=== PATIENT | female | born 1955 | race Hispanic/Latino ===

== ENCOUNTER 2020-02-26 07:57 | Day surgery (SDC) | payer MEDICARE ==
[2020-02-19 10:23] LABS: Absolute Lymphocytes (CBC) 2.4 K/uL (0.7-4.9); Basophils % 0.7 % (0-1.3); Hematocrit 42.1 % (36.0-45.0); Lymphocytes % 32.6 % (15.3-44.8); MPV 8.6 fL (7.6-11.3); RBC Red Blood Cell Count 5.04 M/uL (3.86-4.86)
[2020-02-19 10:27] LABS: Protime INR 0.93
[2020-02-19 10:32] LABS: Potassium 3.9 mmol/L (3.5-5.1)
--- NOTE | 2020-02-19 10:53 | RAD REPORT ---
EXAM DESCRIPTION: Kali Rodriguez And Alvarez (2 Views)02/19/2020 10:00 am CLINICAL HISTORY: Preop for knee surgery COMPARISON: None FINDINGS: The lungs appear clear of acute infiltrate. The heart is probably upper limits normal siz e IMPRESSION: No acute abnormalities displayed
--- NOTE | 2020-02-20 12:27 | EKG ---
Test Date: 2020-02-19 Test Time: 09:43:32 Software Development Analyst: LETITIA MEASUREMENT RESULTS: Intervals: Rate: 61 WV: 154 QRSD: 96 QT: 442 QTc: 444 [place]: P: 52 WV: 154 QRS: -66 T: 219 INTERPRETIVE STATEMENTS: Normal sinus rhythm Left anterior fascicular block ST & T wave abnormality, consider inferior ischemia ST & T wave abnormality, consider anterolateral ischemia Abnormal ECG No previous ECG available for comparison Electronically Signed On 02-20-20 12:24:41 CDT by Irving Noel
[2020-02-26] MEDS ORDERED: CEFAZOLIN/SWI 1gm 1 GM/10 ML SYR ONE (08:25)
[2020-02-26] MEDS ORDERED: NA CHLORIDE 0.9% 1,000 ML ONE (08:25)
[2020-02-26] MEDS ORDERED: propofoL 200 MG/20 ML VIAL IV ONE (08:49)
[2020-02-26] MEDS ORDERED: FENTANYL CITR 100 MCG/2 ML ONE (08:49)
[2020-02-26] MEDS ORDERED: ONDANSETRON 4 MG/2 ML VIAL ONE (08:49)
[2020-02-26] MEDS ORDERED: dexAMETHasone 10 MG/ML VIAL ONE (08:49)
[2020-02-26] MEDS ORDERED: LIDOCAINE 2% MPF 5 ML VIAL ONE (08:49)
[2020-02-26] MEDS ORDERED: MIDAZOLAM HCL 2 MG/2 ML INJ ONE (08:49)
[2020-02-26] MEDS ORDERED: KETOROLAC 30 MG/ML INJ ONE (08:50)
[2020-02-26] MEDS ORDERED: Mastisol Adhesive Liq ONE (08:54)
[2020-02-26] MEDS ORDERED: BUPIVACAINE 0.25% PF 10 ML VIAL ONE (09:35)
[2020-02-26] MEDS ORDERED: dexAMETHasone 4 MG/ML VIAL ONE (10:41)
[2020-02-26] MEDS ORDERED: EPHEDRINE SULF 50 MG/ML VIAL ONE (11:28)
--- NOTE | 2020-02-26 11:48 | P.BOP ---
Preoperative diagnosis: left knee medial and lateral meniscus tears Postoperative diagnosis: same Primary procedure: left knee arthroscopic partial lateral meniscectomy Secondary procedure: left knee arthroscopic partial medial meniscectomy Nanoelectronics Engineer: NONE,NONE Estimated blood loss: <5 cc Specimen: none Findings: see dictation Anesthesia: General Complications: None Implants: none Fluids & blood products: per anesthesia record; TT: 33 mins @ 300 mmHg Transferred to: Recovery Room Condition: Good
[2020-02-26 11:55] VITALS: O2SAT 97
[2020-02-26] MEDS ORDERED: NA CHLORIDE 0.9% 500 ML ONE (12:11)
[2020-02-26] MEDS ORDERED: HYDROCODONE/APAP 5/325 MG TAB ONE (12:40)
[2020-02-26 13:36] VITALS: TEMP 98.1
[2020-02-26 13:37] VITALS: BP 128/54
--- NOTE | 2020-02-26 22:25 | OP ---
Date of Procedure: 02/26/2020 Surgeon: Kel Harper MD Preoperative Diagnoses: 1.Left knee lateral meniscus tear. 2.Left knee medial meniscus tear. Postoperative Diagnoses: 1.Left knee lateral meniscus tear. 2.Left knee medial meniscus tear. Procedure Performed: 1.Left knee arthroscopic partial medial meniscectomy. 2.Arthroscopic left knee partial lateral meniscectomy. Anesthesia: General LMA. Fluids: Per Anesthesia record. Estimated Blood Loss: Less than 5 cc. Tourniquet Time: 32 minutes at 300 mmHg. Indication For Procedure: Ms. Mortensen is a 64-year-old female, who presented to my clinic with sig ns, symptoms, and MRI findings consistent with lateral meniscus tear, medial meniscus tear of her lef t knee. The patient reported continued pain of her left knee and difficulty with activities of daily living. I discussed with the patient at length risks and benefits associated with operative and non operative treatment. She expressed understanding and elected to proceed with operative treatment. Description Of Procedure: After informed consent was obtained, the patient was identified in the pre operative holding area. The left lower extremity was marked. The patient was then brought in and ta mainor back to the operating room, transferred to the operating table in a supine fashion and placed und er general LMA anesthesia. The left lower extremity was then prepped and draped in usual sterile fas hion. A time-out was initiated. The correct patient and procedure were confirmed and identified. T he patient did receive preoperative prophylactic antibiotics. The left lower extremity was then exsa nguinated using an Esmarch. The tourniquet was inflated at 300 mmHg. A standard anteromedial and an terolateral portals were created. The arthroscope was brought in via the anterolateral portal and di agnostic arthroscopy was performed. The arthroscope was then first brought into the medial and into the patellofemoral compartment where the patient was noted to have no significant chondral injury of the patellofemoral compartment. The arthroscope was then brought into both medial and lateral gutter s. There were no loose bodies within the gutters. The arthroscope was then brought to the medial co mpartment. The patient was noted to have a small tear at the medial meniscus body, which was complex in nature with some radial and horizontal components. A partial medial meniscectomy was performed u sing arthroscopic meniscal biter and arthroscopic shaver. The arthroscope was then brought into the intercondylar notch. The patient was noted to have an intact ACL and PCL. The patient did have some grade 2 chondromalacia changes at her medial compartment. The arthroscope was then brought into the lateral compartment where the patient was noted to have some grade 3 chondromalacia changes of her l ateral femoral condyle. The patient was also noted to have some extensive complex anterior horn late ral meniscus tear with significant fraying. The arthroscopic shaver was then used to debride the men iscal tear, which did appear to be completely to the rim. After partial meniscectomy was performed, there was stable meniscal borders. The arthroscopic instruments were then removed without complicati on and the wounds were then irrigated thoroughly with normal saline and portals were approximated usi ng a 3-0 Monocryl. Sterile dressings were applied. Tourniquet was let down. The patient was awaken ed and transferred to PACU in stable condition. Postoperative Plan: Ms. Mortensen will be weightbearing as tolerated. She will be followed next aly merrill for wound check. She will be sent to Physical Therapy to work on range of motion and strengthening per postmeniscectomy protocol. CV/MODL Voice ID: [id number] Report ID: [id number]
--- OUTSIDE RECORDS SUMMARY | 2020-03-02 18:38 | XMS REPORT | Summary of Care ---
:1955 Author Organization [facility] - Health Address [address] [place] [address] Care Team Providers Name Role Phone Paiz Primary Care Provider Encounter Details Date Type Department Care Team Description 02/17/2020 Orders Only [facility] Doctor Unassigned, No 301 [facility] Name [place] [id number] [address] [place], [place] [id number] Allergies Not on Filedocumented as of this encounter (statuses as of 02/17/2020) Medications Not on filedocumented as of this encounter (statuses as of 02/17/2020) Active Problems Not on filedocumented as of this encounter (statuses as of 02/17/2020) Social History Tobacco Use Types Packs/Day Years Used Date Never Assessed Sex Assigned at Date Recorded Not on file COVID-19 Exposure Response Date Recorded In the last month, have you been in contact with No / Unsure 02/05/2020 1:18 PM CDT someone who was confirmed or suspected to have Coronavirus / COVID-19? documented as of this encounter Last Filed Vital Signs Not on filedocumented in this encounter Plan of Treatment Date Type Specialty Care Team Description 02/17/2020 Appointment Radiology Radiology [address] [place] [address] Health Maintenance Due Date Last Done Comments HEPATITIS C (HCV) SCREEN 1955 Depression Screening 1966 DTaP,Tdap,and Td Vaccines ( - 1973 Tdap) COLON CANCER SCREENING ANNUAL 2004 FIT/FOBT COLON CANCER SCREENING FIT DNA 2004 EVERY 3 YEARS COLON CANCER SCREENING 2004 SIGMOIDOSCOPY EVERY 5 YEARS COLONOSCOPY 2004 Colorectal Cancer Screening 2004 Zoster Recombinant Vaccine 2004 (SHINGRIX) (1 of 2) Medicare Wellness Visit 12/02/2019 Osteoporosis Screening 12/02/2019 PNEUMOCOCCAL VACCINES 65+ (1 of 1 12/02/2019 - PPSV23) INFLUENZA VACCINE (#1) 2020 05/27/2015 Breast Cancer Screening 01/29/2020 01/28/2019, 01/02/2018, (MAMMOGRAM) 01/01/2017, Additional history exists documented as of this encounter Procedures Procedure Name Priority Date/Time Associated Diagnosis Comme nts ASSIGNMENT OF BENEFITS Routine 02/17/2020 8:55 AM CDT documented in this encounter Results Not on filedocumented in this encounter Insurance Payer Benefit Plan / Subscriber ID Effective Phone Address T ype Group Dates [place]/FELISA [id number] 2020-Pres [place] Adv HEALTHCARE - MEDICARE ent O MANAGED MEDICARE ADVANTAGE documented as of this encounter
--- OUTSIDE RECORDS SUMMARY | 2020-03-02 18:38 | XMS REPORT | Summary of Care ---
:1955 Author Organization [facility] Address [address] [place] [address] Care Team Providers Name Role Phone Paiz Primary Care Provider Encounter Details Date Type Department Care Team Description 02/22/2020 Orders Only [facility] Doctor Unassigned, No 301 [facility] Name [place] [id number] [address] [place] [id number] Allergies No Known Allergiesdocumented as of this encounter (statuses as of 02/24/2020) Medications No known medicationsdocumented as of this encounter (statuses as of 02/24/2020) Active Problems Not on filedocumented as of this encounter (statuses as of 02/24/2020) Social History Tobacco Use Types Packs/Day Years Used Date Never Assessed Sex Assigned at Date Recorded Not on file COVID-19 Exposure Response Date Recorded In the last month, have you been in contact with No / Unsure 02/23/2020 9:30 AM CDT someone who was confirmed or suspected to have Coronavirus / COVID-19? documented as of this encounter Last Filed Vital Signs Not on filedocumented in this encounter Plan of Treatment Health Maintenance Due Date Last Done Comments [...] VACCINE (#1) 2020 05/27/2015 Breast Cancer Screening 02/16/2021 02/17/2020, 01/28/2019, (MAMMOGRAM) 01/02/2018, Additional history exists documented as of this encounter Procedures Procedure Name Priority Date/Time Associated Diagnosis Comme nts AUTHORIZATION TO RELEASE Routine 02/22/2020 12:01 AM PHI TO [facility] CDT documented in this encounter Results Not on filedocumented in this encounter Insurance Payer Benefit Plan / Subscriber ID Effective Phone Address T ype Group Dates [employer]/FELISA [id number] 2020-Pres [place] Adv HEALTHCARE - MEDICARE ent O MANAGED MEDICARE ADVANTAGE documented as of this encounter
--- OUTSIDE RECORDS SUMMARY | 2020-03-02 18:38 | XMS REPORT | Continuity of Care Document ---
:1955 Author Organization [facility] t Address [address] [place] [address] Care Team Providers Name Role Phone Doctor Unassigned, Name Attending Clinician Unavailable Erlin BERMUDEZ Attending Clinician Problems This patient has no known problems. Allergies, Adverse Reactions, Alerts This patient has no known allergies or adverse reactions. Medications This patient has no known medications. Procedures This patient has no known procedures. Encounters Start End Encounter Admission Attending Care Care Encounter Source Date/Time Date/Time Type Type Clinicians Facility Department ID 2020-02-25 2020-02-25 Orders Doctor MARSHALL [id number] 00:00:00 00:00:00 Only [facility] [id number] [place] [facility] [phone] [id number] 2020-02-23 2020-02-23 Office CARLA Kern [id number] 09:11:39 10:23:04 Visit Kaitlin Castellanos [id number] [place] [id number] Tori [id number] nal 059 Building Results This patient has no known results.
--- OUTSIDE RECORDS SUMMARY | 2020-03-02 18:38 | XMS REPORT | Summary of Care ---
:1955 Author Organization [facility] Address [address] [place] [address] Care Team Providers Name Role Phone [facility] Primary Care Provider Reason for Referral Radiology Services (Routine) Status Reason Specialty Diagnoses / Referred By Referred To Procedures Contact Contact Closed Diagnostic Diagnoses Encounter for screening mammogram for malignant neoplasm of breast Paiz, Sondra- Ted Radiology Procedures BI SELF-REFERRED SCREENING TOMOSYNTHESIS BILATERAL [address] [place] [address] Reason for Visit Radiology Services (Routine) Status Reason Specialty Diagnoses / Referred By Referred To Procedures Contact Contact Closed Diagnostic Diagnoses Encounter for screening mammogram for malignant neoplasm of breast Paiz, Sondra- Ted Radiology Procedures BI SELF-REFERRED SCREENING TOMOSYNTHESIS BILATERAL [address] [place] [address] Encounter Details Date Type Department Care Team Description 02/17/2020 Hospital Encounter [facility] Arrived [facility] [address] [place] [address] Allergies Not on Filedocumented as of this encounter (statuses as of 02/18/2020) Medications Not on filedocumented as of this encounter (statuses as of 02/18/2020) Active Problems Not on filedocumented as of this encounter (statuses as of 02/18/2020) Social History Tobacco Use Types Packs/Day Years Used Date Never Assessed Sex Assigned at Date Recorded Not on file COVID-19 Exposure Response Date Recorded In the last month, have you been in contact with No / Unsure 02/17/2020 8:56 AM CDT someone who was confirmed or suspected to have Coronavirus / COVID-19? documented as of this encounter Last Filed Vital Signs Not on filedocumented in this encounter Plan of Treatment Health Maintenance Due Date Last Done Comments HEPATITIS C (HCV) SCREEN 1955 Depression Screening 1966 DTaP,Tdap,and Td Vaccines (1 - 1973 Tdap) COLON CANCER SCREENING ANNUAL [...] encounter Procedures Procedure Name Priority Date/Time Associated Comments Diagnosis BI SELF-REFERRED Routine 02/17/2020 9:35 Encounter for Result s for this SCREENING AM CDT screening mammogram procedur e are in TOMOSYNTHESIS for malignant the results BILATERAL neoplasm of breast section. documented in this encounter Results BI SELF-REFERRED SCREENING TOMOSYNTHESIS BILATERAL (02/17/2020 9:35 AM CDT) Specimen Narrative Performed At This result has an attachment that is no t available. Examination: PACS BI SELF-REFERRED SCREENING TOMOSYNTHESIS BILATERAL History: Patient is 64 year old and is seen for: Encounter fo r screening mammogram for malignant neoplasm of breast. Computer-aided detection (CAD) utilized. Comparisons: 01/28/2019 BI SELF-REFERRED SCREENING DEMOND OSYNTHESIS BILATERAL, 01/02/2018 BI SCREENING TOMOSYNTHESIS BILAT ERAL, 01/01/2017 SCREENING DIGITAL BREAST TONI, and 12/16/2015 DIGITAL MAMMOGRAM, SCREENING Findings: The breasts are almost entirely fatty. Left There is a 4 mm equal density, oval mass with circumsc ribed margins seen in the retroareolar region of the left breast in the a nterior depth, 2 cm from the nipple. Compared to the previous study, the m ass increased in size. There is a 3 mm round mass with circumscribed margins seen in the retroareolar region of the left breast in the anterior depth, 2 cm from the nipple. Compared to the previous study, the mass i s less defined. Bilateral There are round and rim calcifications in a diffuse di stribution seen in both breasts. Compared to the previous study, there ar e no significant changes. There are round and rim calcifications in a diffuse di stribution seen in both breasts. Compared to the previous study, there ar e no significant changes. Impression: 4 mm MASS IN UPPER RETROAREOLAR REGION OF LEFT BREAST IS PROBABLY A SMALL CYST, HOWEVER, ULTRASOUND STUDY REQUESTED TO RULE OUT A SOLID MASS. Recommendation: Ultrasound - Left Annual mammographic follow-up - Left BI-RADS Category: Left: 0 - Incomplete: Needs Additional Imaging Evaluat ion Overall: 0 - Incomplete: Needs Additional Imaging Eval uation Performing Organization Address City/State/Zipcode Phone Number PACS documented in this encounter Visit Diagnoses Diagnosis Encounter for screening mammogram for ma lignant neoplasm of breast Other screening mammogram documented in this encounter Insurance Payer Benefit Plan / Subscriber ID Effective Phone Address T ype Group Dates [facility] [id number] 2020-Pres [place] dicare [facility] documented as of this encounter
--- OUTSIDE RECORDS SUMMARY | 2020-03-02 18:38 | XMS REPORT | Summary of Care ---
:1955 Author Organization [facility] Address [address] [place] [address] Care Team Providers Name Role Phone Paiz Primary Care Provider Reason for Visit (Routine) Status Reason Specialty Diagnoses / Procedures Referred By R eferred To Contact Contact Closed Cardiology Diagnoses Abnormal EKG Preop cardiovascular exam Kaitlin Kern MD Procedures ECHO ROUTINE W/DOPPLER COLOR Preferred Location: [address] [place], [place] [address] Encounter Details Date Type Department Care Team Description 02/24/2020 Laboratory Only [facility] Kaitlin Kern M D [address] [place] [address] [place] [address] Abnormal EKG; Cardiology- Pc, Adc Echo Room 1 - Preop cardiovascular exam [address], [address] [place] [address] Allergies No Known Allergiesdocumented as of this encounter (statuses as of 02/24/2020) Medications Medication Sig Dispensed Refills Start Date End Date Status omeprazole 40 mg capsule Take 40 mg by 0 Active mouth daily. losartan 50 mg tablet Take 50 mg by 0 Active mouth daily. metFORMIN 500 mg tablet Take 500 mg by 0 Active mouth 2 (two) times daily with meals. PARoxetine 20 mg tablet Take 20 mg by 0 Active mouth daily. atorvastatin 10 mg Take 10 mg by 0 Active tablet mouth at bedtime. documented as of this encounter (statuses as of 02/24/2020) Active Problems Not on filedocumented as of this encounter (statuses as of 02/24/2020) Social History Tobacco Use Types Packs/Day Years Used Date Never Smoker Smokeless Tobacco: Never Used Sex Assigned at Date Recorded Not on file COVID-19 Exposure Response Date Recorded In the last month, have you been in contact with No / Unsure 02/23/2020 9:30 AM CDT someone who was confirmed or suspected to have Coronavirus / COVID-19? documented as of this encounter Last Filed Vital Signs Vital Sign Reading Time Taken Comments Blood Pressure 142/78 02/24/2020 11:34 AM CDT Pulse 65 02/24/2020 11:34 AM CDT Temperature - - Respiratory Rate - - Oxygen Saturation - - Inhaled Oxygen Concentration - - Weight 73.9 kg (163 lb) 02/24/2020 11:34 AM CDT Height 162.6 cm (5' 4") 02/24/2020 11:34 AM CDT Body Mass Index 27.98 02/24/2020 11:34 AM CDT documented in this encounter Plan of Treatment Health [...] history exists documented as of this encounter Results Not on filedocumented in this encounter Visit Diagnoses Diagnosis Abnormal EKG Nonspecific abnormal electrocardiogram ( ECG) (EKG) Preop cardiovascular exam Pre-operative cardiovascular examination documented in this encounter Insurance Payer Benefit Plan / Subscriber ID Effective Phone Address T ype Group Dates [facility] [id number] 2020-Pres dicare Adv HEALTHCARE - MEDICARE ent HMO MANAGED MEDICARE ADVANTAGE documented as of this encounter
--- OUTSIDE RECORDS SUMMARY | 2020-03-02 18:39 | XMS REPORT | Summary of Care ---
:1955 Author Organization [facility] Address [address] [place] [address] Care Team Providers Name Role Phone Paiz Primary Care Provider Reason for Referral (Routine) Status Reason Specialty Diagnoses / Procedures Referred By R eferred To Contact Contact Closed Cardiology Diagnoses Abnormal EKG Preop cardiovascular exam Kaitlin Kern MD Procedures ECHO ROUTINE W/DOPPLER COLOR Preferred Location: [address] [place], [place] [address] Reason for Visit Reason Comments New Patient establish care for cardiac c learance Encounter Details Date Type Department Care Team Description 02/23/2020 Office Visit [facility] Kaitlin Kern M D Abnormal EKG (Primary Dx); Cardiology- [address] Preop cardiovascular exam; [address] [place] [address] Essential hypertension [facility], [address] [place], [place] [phone] Allergies No Known Allergiesdocumented as of this encounter (statuses as of 02/26/2020) Medications Medication Sig Dispensed Refills Start Date [...] as of this encounter (statuses as of 02/26/2020) Active Problems Not on filedocumented as of this encounter (statuses as of 02/26/2020) Social History Tobacco Use Types Packs/Day Years [...] Sign Reading Time Taken Comments Blood Pressure 126/73 02/23/2020 9:35 AM CDT Pulse 60 02/23/2020 9:35 AM CDT Temperature 36.4 C (97.6 F) 02/23/2020 9:35 AM CDT Respiratory Rate 18 02/23/2020 9:35 AM CDT Oxygen Saturation 96% 02/23/2020 9:35 AM CDT Inhaled Oxygen Concentration - - Weight 74 kg (163 lb 1.6 oz) 02/23/2020 9:35 AM CDT Height 162.6 cm (5' 4") 02/23/2020 9:35 AM CDT Body Mass Index 28 02/23/2020 9:35 AM CDT documented in this encounter Progress Notes Kaitlin Kern MD - 02/23/2020 9:40 AM CDT CARDIOLOGY CLINIC NOTE 02/23/2020 Reason for Referral/Presenting Complaint: preop cardiac evaluation PCP: Jeovanny Paiz Surgeon: Mina Harrison Jackson History of Present Illness: Josefa Mortensen is a 64 years old female with history of HTN. She is going to have knee surgery this Saturday. Preop EKG was abnormal. She feeling well. No chest pain or dyspnea. Was able to walk 1 mile before knee got bad. Cardiovascular testing: EK02/19/2020 normal sinus rhythm, LAFB, TWI in inferior and anterolateral leads suggesting ischemia Review of Systems: General: (-) fever, (-) chills, (-) weight change, (-) dizziness, (-) fatigue Skin: (-) rash HEENT: (-) headache, (-) change in vision Neck: (-) difficulty swallowing Heme: negative Resp: (-) cough, (-) dyspnea on exertion Cardio: (-) chest pain, (-) palpitations, (-) syncope GI: (-) vomiting, (-) diarrhea : negative Endo: (-) diabetes, (-) thyroid disease Neuro: (-) numbness, (-) tingling, (-) weakness Back: (-) pain DIMITRI: (-) muscle pain, (-) claudication Psych: (-) anxiety, (-) depression Past Medical History: No past medical history on file. Current Medications: Current Outpatient Medications Medication Sig Dispense Refill atorvastatin 10 mg tablet Take 10 mg by mouth at bedtime. losartan 50 mg tablet Take 50 mg by mouth daily. metFORMIN 500 mg tablet Take 500 mg by mouth 2 (two) times daily with meals. omeprazole 40 mg capsule Take 40 mg by mouth daily. PARoxetine 20 mg tablet Take 20 mg by mouth daily. No current facility-administered medications for this visit. Social History: Social History Socioeconomic History Marital status: Spouse name: Not on file Number of children: Not on file Years of education: Not on file Highest education level: Not on file Occupational History Not on file Social Needs Financial resource strain: Not on file Food insecurity Worry: Not on file Inability: Not on file Transportation needs Medical: Not on file Non-medical: Not on file Tobacco Use Smoking status: Never Smoker Smokeless tobacco: Never Used Substance and Sexual Activity Alcohol use: Not on file Drug use: Not on file Sexual activity: Not on file Lifestyle Physical activity Days per week: Not on file Minutes per session: Not on file Stress: Not on file Relationships Social connections Talks on phone: Not on file Gets together: Not on file Attends druze service: Not on file Active member of club or organization: Not on file Attends meetings of clubs or organizations: Not on file Relationship status: Not on file Intimate partner violence Fear of current or ex partner: Not on file Emotionally abused: Not on file Physically abused: Not on file Forced sexual activity: Not on file Other Topics Concern Not on file Social History Narrative Not on file Family History Family History Problem Relation Age of Onset Heart Mother 68 [place] No Significant Medical Problems Father Physical Examination: BP 126/73 (BP Location: Right arm, Patient Position: Sitting, BP CUFF SIZE: Adult Large) | Pulse 60 | Temp 36.4 C (97.6 F) (Oral) | Resp 18 | Ht 5' 4" (1.626 m) | Wt 163 lb 1.6 oz (74 kg) | SpO2 96% | BMI 28.00 kg/m Constitutional: alert and oriented x 3 (person, place and date/time); no apparent distress ENT: normocephalic atraumatic, supple, no lymphadenopathy, no bruits, no JVD Lungs: clear to auscultation bilaterally Cardiovascular: S1, S2 normal, regular; no murmurs, rubs or gallops GI: soft; non-tender; non-distended; normoactive bowel sounds : not examined Musculoskeletal: Extremities: no clubbing, cyanosis, or edema Skin: no rashes Neuro: no focal deficits Assessment/Plan: ICD-10-CM ICD-9-CM 1. Abnormal EKG R94.31 794.31 2. Preop cardiovascular exam Z01.810 V72.81 3. Essential hypertension I10 401.9 Will get ECHO to rule out structural heart disease. No DM/HF/stroke etc. Functional capacity was normal before knee pain limited her activity. No compelling need for a stress test. Thank you for allowing us to participate in the care of your patient. Please feel free to contact usfor any questions or if we can be of further assistance. Kaitlin Kern MD, FAC, AVINASH Fiber Product Cutting Machine Operator, Division of Cardiology [facility] documented in this encounter Plan of Treatment [...] exists documented as of this encounter Results ECHO ROUTINE W/DOPPLER COLOR Preferred Location: [facility] (02/24/2020 11:02 AM CDT) Specimen Performing Organization Address City/State/Zipcode Phone Number ECHO documented in this encounter Visit Diagnoses Diagnosis Abnormal EKG - Primary Nonspecific abnormal electrocardiogram ( ECG) (EKG) Preop cardiovascular exam Pre-operative cardiovascular examination Essential hypertension Unspecified essential hypertension documented in this encounter Insurance Payer Benefit Plan / Subscriber ID Effective Phone Address T e Group Dates [facility] [id number] 2020-[facility] agueda [facility] documented as of this encounter
--- OUTSIDE RECORDS SUMMARY | 2020-03-02 18:39 | XMS REPORT | Summary of Care ---
:1955 Author Organization [facility] Address [address] [place] [address] Care Team Providers Name Role Phone Paiz Primary Care Provider Reason for Referral (Routine) Status Reason Specialty Diagnoses / Procedures Referred By R eferred To Contact Contact Closed Cardiology Diagnoses Abnormal EKG Preop cardiovascular exam Kaitlin Kern MD Procedures ECHO ROUTINE W/DOPPLER COLOR Preferred Location: [address] [place], [place] [address] Reason for Visit Reason Comments New Patient establish care for cardiac c learance Encounter Details Date Type Department Care Team Description 02/23/2020 Office Visit [facility] Kaitlin Kern M D Abnormal EKG (Primary Dx); Cardiology- [address] [place] [address] Preop cardiovascular exam; [address] [place] [address] Essential hypertension [facility], [address] [place], [place] [id number] [phone] Allergies No Known Allergiesdocumented as of this [...] file Gets together: Not on file Attends congregational service: Not on file Active member of [...] Relation Age of Onset Heart Mother 68 [place] No Significant Medical Problems Father Physical Examination: [...] further assistance. Kaitlin Kern MD, FAC, AVINASH Marine Structural Designer, Division of Cardiology [facility] documented in this encounter Plan of Treatment [...] Results ECHO ROUTINE W/DOPPLER COLOR Preferred Location: [facility] (02/24/2020 11:02 AM CDT) Specimen Performing Organization Address City/State/Zipcode Phone Number ECHO documented in this encounter Visit Diagnoses Diagnosis Abnormal EKG - Primary Nonspecific abnormal electrocardiogram ( ECG) (EKG) Preop cardiovascular exam Pre-operative cardiovascular examination Essential hypertension Unspecified essential hypertension documented in this encounter Insurance Payer Benefit Plan / Subscriber ID Effective Phone Address T e Group Dates [facility] [id number] 2020-[facility] agueda [facility] documented as of this encounter
--- OUTSIDE RECORDS SUMMARY | 2020-03-02 18:39 | XMS REPORT | Summary of Care ---
:1955 Author Organization [facility] - Health Address [address] [place] [address] Care Team Providers Name Role Phone Paiz Primary Care Provider Encounter Details Date Type Department Care Team Description 02/23/2020 Orders Only [facility] Doctor Unassigned, No [address] [facility] [place] [address] [address] [place] [address] Allergies No Known Allergiesdocumented as of this [...] Name Priority Date/Time Associated Diagnosis Comme nts EXTERNAL PROVIDER Routine 02/23/2020 12:01 AM CDT RECORDS documented in this encounter Results Not on filedocumented in this encounter Insurance Payer Benefit Plan / Subscriber ID Effective Phone Address T ype Group Dates [employer]/FELISA [id number] 2020-Pres [place] [employer] [facility] - MEDICARE ent O MANAGED MEDICARE ADVANTAGE documented as of this encounter
--- OUTSIDE RECORDS SUMMARY | 2020-03-02 18:39 | XMS REPORT | Summary of Care ---
:1955 Author Organization [facility] Address [address] [place] [address] Care Team Providers Name Role Phone Paiz Primary Care Provider Reason for Visit Reason Comments Pre-op Clearance letter faxed Encounter Details Date Type Department Care Team Description 02/25/2020 Telephone [facility] Kaitlin Kern M D Pre-op Clearance Cardiology- [address] (letter faxed) [address] [place] [address] [address] [place], [place] [phone] Allergies No Known Allergiesdocumented as of this encounter (statuses as of 02/25/2020) Medications Medication Sig Dispensed Refills Start Date [...] as of this encounter (statuses as of 02/25/2020) Active Problems Not on filedocumented as of this encounter (statuses as of 02/25/2020) Social History Tobacco Use Types Packs/Day Years [...] Signs Not on filedocumented in this encounter Miscellaneous Notes Telephone Encounter - Maine Duarte RN - 02/25/2020 8:26 AM CDTCardiac clearance letter faxed to Dr Harper with [facility]. Confirmation received. documented in this encounter Plan of Treatment [...] Effective Phone Address T ype Group Dates [employer] MOO/FELISA [id number] 2020-Pres [employer] Adv HEALTHCARE - MEDICARE ent HMO MANAGED MEDICARE ADVANTAGE documented as of this encounter
--- OUTSIDE RECORDS SUMMARY | 2020-03-02 18:39 | XMS REPORT | Summary of Care ---
:1955 Author Organization [facility] - Health Address [address] [place] [address] Care Team Providers Name Role Phone Paiz Primary Care Provider Encounter Details Date Type Department Care Team Description 02/25/2020 Orders Only [facility] Doctor Unassigned, No 301 [facility] [place] [address] [address] [place] [address] Allergies No Known Allergiesdocumented as of this [...] Name Priority Date/Time Associated Diagnosis Comme nts MEDICAL Routine 02/25/2020 12:01 AM CDT RELEASE/CLEARANCE FORMS documented in this encounter Results Not on filedocumented in this encounter Insurance Payer Benefit Plan / Subscriber ID Effective Phone Address T ype Group Dates [place] MOO/FELISA [id number] 2020-Pres [place] [employer] - MEDICARE ent O MANAGED MEDICARE ADVANTAGE documented as of this encounter
== END 2020-02-26 13:20 | disposition home or self-care (01) ==
LOC: OR 07:57
PROVIDERS: ATTEND Orthopaedic Surgery Sports Medicine
PROC: 0SBD4ZZ Excision of Left Knee Joint, Percutaneous Endoscopic Approach (ICD-10-PCS; 2020-02-26)
PROC: 0SBD4ZZ Excision of Left Knee Joint, Percutaneous Endoscopic Approach (ICD-10-PCS; principal; 2020-02-26 10:00)
DX: S83.272A Complex tear of lateral meniscus, current injury, left knee, initial encounter (principal); E11.9 Type 2 diabetes mellitus without complications; F41.9 Anxiety disorder, unspecified; E78.00 Pure hypercholesterolemia, unspecified; K21.9 Gastro-esophageal reflux disease without esophagitis; I10 Essential (primary) hypertension; Z20.828 Contact with and (suspected) exposure to other viral communicable diseases
CPT/HCPCS: 36415; 71046; 80048; 82947; 85025; 85610; 85730; 93005; J0690; J1100; J2250; J2405; J2704; J3010; J7030; J7040; U0002